=== PATIENT | male | born 1960 | race Caucasian/White ===

== ENCOUNTER 2017-09-19 13:34 | Day surgery (SDC) | payer MEDICAID ==
[~2017-09-19] VITALS: Ht 172.7 cm; Wt 68.2 kg
[~2017-09-19 13:34] MED LIST: NICO-687 TD; PANT40TA4 PO
[2017-09-19 13:55] VITALS: BP 109/71
[2017-09-19] MEDS ORDERED: fentaNYL/PF 50MCG/1 ML 2ML syringe ONE (14:38)
[2017-09-19] MEDS ORDERED: MIDAZolam 5mg/5ml vial ONE (14:39)
[2017-09-19] MEDS ORDERED: LIDOcaine Viscous 15ml cup ONE (14:39)
[2017-09-19] MEDS ORDERED: ZOFRAN PO (14:52)
[2017-09-19] MEDS ORDERED: SUCR1TAB34 PO (14:53)
[2017-09-19] MEDS ORDERED: PANT40TA4 PO (14:55)
[2017-09-19 16:04] VITALS: BP 117/79
[2017-09-19 16:14] VITALS: BP 110/72
[2017-09-19 16:24] VITALS: BP 114/80
[2017-09-19 16:34] VITALS: BP 122/68
== END 2017-09-19 16:50 | disposition home or self-care (01) ==
LOC: GI LAB 13:34
PROVIDERS: ATTEND Internal Medicine Gastroenterology
DX: K44.9 Diaphragmatic hernia without obstruction or gangrene (principal); K31.89 Other diseases of stomach and duodenum; K22.8 Other specified diseases of esophagus; F17.210 Nicotine dependence, cigarettes, uncomplicated; Z98.890 Other specified postprocedural states; Z90.49 Acquired absence of other specified parts of digestive tract; Z79.899 Other long term (current) drug therapy
CPT/HCPCS: 43239; 99152; J2250; J3010; J7030; A4620; G0500

== ENCOUNTER 2018-09-21 13:08 | Inpatient (IN) | payer MEDICAID ==
[~2018-09-21] VITALS: Ht 172.7 cm; Wt 150.0 kg
[~2018-09-21 13:08] MED LIST changes: -NICO-687 TD; +SUCR1TAB34 PO; +ZOFRAN PO
[2018-09-21] MEDS ORDERED: metoclopramide 5 mg/ml inj IV ONE (14:10)
[2018-09-21] MEDS ORDERED: diphenhydrAMINE 50 mg/ml inj IV ONE (14:10)
[2018-09-21] MEDS ORDERED: octreotide inj. 1,250 MCG in normal saline 250ml IV soln 250 ML IV SCH (14:40)
[2018-09-21 14:54] LABS: CLARITY,URINE CLEAR (Clear); COLOR,URINE YELLOW (Yellow); GLUCOSE, URINE NEGATIVE (Neg); KETONES,URINE TRACE mg/dl (Neg); LEUKOCYTE ESTERASE ,URINE NEGATIVE (Neg); NITRITES, URINE NEGATIVE (Neg); OCCULT BLOOD,URINE NEGATIVE (Neg); PROTEIN,URINE NEGATIVE (Neg); UROBILINOGEN,URINE 0.2 E.U/dL (0.2-1.0)
[2018-09-21] MEDS ORDERED: LIPA1CAP8 PO (14:57)
[2018-09-21] MEDS ORDERED: PROM25TA14 PO (14:57)
[2018-09-21 15:01] LABS: UA COLLECTION TYPE CLN CATCH MIDSTREAM
[2018-09-21 15:03] LABS: BASOPHILS # (AUTO) 0.1 X10'3 (0-0.2); BASOPHILS % (AUTO) 0.5 % (0-1); EOSINOPHILS % (AUTO) 0.2 % (0-6); HEMATOCRIT 40.7 % (42.0-52.0); HEMOGLOBIN 13.1 g/dl (14.0-17.9); LYMPHOCYTES # (AUTO) 2.5 X10'3 (1.1-4.8); LYMPHOCYTES % (AUTO) 21.4 % (21-51); MEAN CORPUSCULAR HEMOGLOBIN 28.4 PG (27.0-31.0); MEAN CORPUSCULAR HGB CONC 32.3 g/dL (33.0-36.5); MEAN CORPUSCULAR VOLUME 88.2 FL (78-98); MEAN PLATELET VOLUME 8.5 FL (7.4-10.4); MONOCYTES # (AUTO) 0.7 X10'3 (0-0.9); MONOCYTES % (AUTO) 5.8 % (2-12); NEUTROPHILS # (AUTO) 8.5 X10'3 (1.8-7.7); NEUTROPHILS % (AUTO) 72.1 % (42-75); PLATELET COUNT 319 X10'3 (140-440); RED BLOOD COUNT 4.62 X10'6 (4.70-6.10); RED CELL DISTRIBUTION WIDTH 18.7 % (11.5-14.5); WHITE BLOOD COUNT 11.8 X10'3 (4.5-11.0)
[2018-09-21 15:09] LABS: ALANINE AMINOTRANSFERASE 33 U/L (12-78); ALBUMIN 3.1 G/DL (3.4-5.0); ALKALINE PHOSPHATASE 72 IU/L (46-116); ANION GAP 9 (8-16); ASPARTATE AMINO TRANSFERASE 18 U/L (10-37); BILIRUBIN,TOTAL 0.2 MG/DL (0.1-1.0); BLOOD UREA NITROGEN 26 MG/DL (7-18); BUN/CREATININE RATIO 21.7 (5.4-32.0); CALCIUM 8.4 MG/DL (8.5-10.1); CHLORIDE 103 MMOL/L (99-107); GLUCOSE 152 MG/DL (70-104); POTASSIUM 4.5 MMOL/L (3.5-5.1); SODIUM 140 MMOL/L (135-145); TOTAL PROTEIN 6.2 G/DL (6.4-8.2); eGFR 63 ML/MIN
[2018-09-21 15:12] LABS: LIPASE 56 U/L (73-393); TROPONIN I < 0.04 NG/ML (0.0-0.05)
[2018-09-21] MEDS ORDERED: normal saline 1000ml 1,000 ML IV ONE (15:20)
[2018-09-21] MEDS ORDERED: ondansetron/PF 4mg/2ml inj IV PRN (15:30)
[2018-09-21] MEDS ORDERED: docusate sod 100mg capsule PO PRN (15:30)
[2018-09-21] MEDS ORDERED: acetaminophen 325mg tablet PO PRN ×2 (15:30)
[2018-09-21] MEDS: pantoprazole 40MG/NS 100ML BAG 100 ML IV SCH ×2 (15:32→21:11)
[2018-09-21] MEDS ORDERED: tranexamic acid 100mg/ml inj. IV ONE ×2 (15:35)
[2018-09-21] MEDS ORDERED: tranexamic acid inj. 1,500 MG in normal saline 100ml IV soln 100 ML IV ONE (15:45)
[2018-09-21 16:00] VITALS: BP 139/90
--- NOTE | 2018-09-21 16:02 | NUR ---
PT WENT TO CT THEN TO GI LAB. DR COLVIN NOTIFIED. STATED WILL SEE PT SOON THEY GET BACK.
[2018-09-21] MEDS ORDERED: fentaNYL/PF 50MCG/1 ML 2ML syringe ONE (16:06)
[2018-09-21] MEDS ORDERED: MIDAZolam 5mg/5ml vial ONE (16:07)
[2018-09-21] MEDS ORDERED: LIDOcaine Viscous 15ml cup ONE (16:07)
[2018-09-21 16:25] VITALS: BP 139/89
[2018-09-21 16:35] VITALS: BP 126/87
[2018-09-21 16:45] VITALS: BP 127/78
[2018-09-21 16:55] VITALS: BP 120/76
[2018-09-21] MEDS: morphine 4 MG/ML inj SYRINge IV PRN ×2 (17:50→22:13)
--- NOTE | 2018-09-21 17:52 | NUR ---
sent tech down to pharmacy to get prbc. blood bank stated blood not ready at this time. will continue to monitor pt.
--- NOTE | 2018-09-21 18:29 | NUR ---
attempted to call report, rn unavailable. will call back
--- NOTE | 2018-09-21 18:43 | NUR ---
REPORT CALLED TO RAMON HORNE ON SURGICAL, CASE DISCUSSED, LABS AND MEDICATIONS REVIEWED. PT TO BE TRANSPORTED TO FLOOR BY JVOANNI HORNE WITH TELE-MONITORING. PT BELONGINGS TRANSPORTED TO FLOOR WITH THE PATIENT.
--- NOTE | 2018-09-21 18:51 | NUR ---
Patient in room ED 14. I have received report from OZZIE Norman and had the opportunity to ask questions and will assume patient care when pt arrives to unit.
--- NOTE | 2018-09-21 19:10 | NUR ---
Patient brought up from ED. patient is alert and oriented, was able to walk to his bed by himself. VSS
[2018-09-21 19:20] VITALS: BP 124/90
[2018-09-21] MEDS: normal saline 1000ml 1,000 ML IV SCH (19:33)
--- NOTE | 2018-09-21 20:21 | NUR ---
I called the pharmacy to clarify the tranexamic acid 100mg/mL inj that was scheduled to be given at 1500. They said they do not have an active order for that one so it cannot be given.
[2018-09-21 21:18] LABS: HEMATOCRIT 36.1 % (42.0-52.0); HEMOGLOBIN 11.5 g/dl (14.0-17.9); MEAN CORPUSCULAR HEMOGLOBIN 28.3 PG (27.0-31.0); MEAN CORPUSCULAR HGB CONC 31.8 g/dL (33.0-36.5); MEAN CORPUSCULAR VOLUME 89.2 FL (78-98); PLATELET COUNT 303 X10'3 (140-440); RED BLOOD COUNT 4.05 X10'6 (4.70-6.10); RED CELL DISTRIBUTION WIDTH 18.8 % (11.5-14.5); WHITE BLOOD COUNT 13.6 X10'3 (4.5-11.0)
[2018-09-21] MEDS: sucralfate 1 gm tablet PO SCH (22:13)
[2018-09-21] MEDS: nicotine 14mg patch - 24hr TD SCH (22:13)
[2018-09-21 23:13] LABS: URINE AMPHETAMINE SCREEN POSITIVE (Neg); URINE BARBITUATE SCREEN NEGATIVE (Neg); URINE BENZODIAZEPINES SCREEN POSITIVE (Neg); URINE CANNABINOID SCREEN POSITIVE (Neg); URINE COCAINE SCREEN NEGATIVE (Neg); URINE METHADONE SCREEN NEGATIVE (Neg); URINE OPIATE SCREEN POSITIVE (Neg); URINE PHENCYCLIDINE SCREEN NEGATIVE (Neg)
[2018-09-22] VITALS: BP 100/51
[2018-09-22] MEDS: pantoprazole 40MG/NS 100ML BAG 100 ML IV SCH ×5 (00:41→20:34)
[2018-09-22] MEDS: normal saline 1000ml 1,000 ML IV SCH ×3 (01:29→15:44)
[2018-09-22] MEDS: morphine 4 MG/ML inj SYRINge IV PRN ×3 (03:42→19:22)
--- NOTE | 2018-09-22 06:30 | NUR ---
Patient in room [facility] 358. I have received report from Yasmine HORNE and had the opportunity to ask questions and assume patient care.
--- NOTE | 2018-09-22 06:36 | NUR ---
Problems reprioritized. Patient report given, questions answered & plan of care reviewed with OZZIE Adkins.
[2018-09-22 06:40] LABS: BASOPHILS # (AUTO) 0.1 X10'3 (0-0.2); BASOPHILS % (AUTO) 1.3 % (0-1); EOSINOPHILS # (AUTO) 0.1 X10'3 (0-0.9); EOSINOPHILS % (AUTO) 0.8 % (0-6); HEMATOCRIT 28.4 % (42.0-52.0); HEMOGLOBIN 9.3 g/dl (14.0-17.9); LYMPHOCYTES # (AUTO) 2.8 X10'3 (1.1-4.8); MEAN CORPUSCULAR HEMOGLOBIN 28.9 PG (27.0-31.0); MEAN CORPUSCULAR HGB CONC 32.8 g/dL (33.0-36.5); MEAN PLATELET VOLUME 8.6 FL (7.4-10.4); MONOCYTES # (AUTO) 0.7 X10'3 (0-0.9); MONOCYTES % (AUTO) 6.9 % (2-12); NEUTROPHILS # (AUTO) 6.7 X10'3 (1.8-7.7); PLATELET COUNT 246 X10'3 (140-440); RED BLOOD COUNT 3.22 X10'6 (4.70-6.10); RED CELL DISTRIBUTION WIDTH 18.3 % (11.5-14.5); WHITE BLOOD COUNT 10.4 X10'3 (4.5-11.0)
[2018-09-22 06:46] LABS: INR 1.1 INR; PROTHROMBIN TIME 10.8 SECONDS (9.0-12.0)
[2018-09-22 06:52] LABS: ALANINE AMINOTRANSFERASE 27 U/L (12-78); ALBUMIN 2.6 G/DL (3.4-5.0); ALBUMIN/GLOBULIN RATIO 1.1 (1.1-1.5); ALKALINE PHOSPHATASE 54 IU/L (46-116); ANION GAP 5 (8-16); ASPARTATE AMINO TRANSFERASE 14 U/L (10-37); BILIRUBIN,TOTAL 0.2 MG/DL (0.1-1.0); BLOOD UREA NITROGEN 26 MG/DL (7-18); BUN/CREATININE RATIO 28.3 (5.4-32.0); CHLORIDE 107 MMOL/L (99-107); CREATININE 0.92 MG/DL (0.60-1.10); GLUCOSE 93 MG/DL (70-104); POTASSIUM 4.2 MMOL/L (3.5-5.1); SODIUM 140 MMOL/L (135-145); TOTAL CARBON DIOXIDE 28.3 MMOL/L (24-32); eGFR 85 ML/MIN
[2018-09-22 08:00] VITALS: BP 121/78
[2018-09-22] MEDS ORDERED: pantoprazole 40 MG vial IV SCH (08:00)
[2018-09-22] MEDS: sucralfate 1 gm tablet PO SCH ×3 (08:00→20:33)
[2018-09-22] MEDS: nicotine 14mg patch - 24hr TD SCH (08:39)
[2018-09-22 12:00] VITALS: BP 119/75
[2018-09-22] MEDS ORDERED: magnesium Cl slow-release 64mg tablet PO PRN (14:25)
[2018-09-22] MEDS ORDERED: potassium Cl 40MEQ/NS 500ml 500 ML IV PRN ×2 (14:25)
[2018-09-22] MEDS ORDERED: magnesium 4gm in 100ml NS 100 ML IV PRN (14:25)
[2018-09-22] MEDS ORDERED: potassium Cl 20 mEq SR tablet PO PRN ×2 (14:25)
--- NOTE | 2018-09-22 18:30 | NUR ---
Problems reprioritized. Patient report given, questions answered & plan of care reviewed with KEO HORNE.
--- NOTE | 2018-09-22 18:35 | NUR ---
Received report from OZZIE Adkins. Patient is awake and alert on room air, in no apparent distress. Call light and items of frequent use within reach. Will continue to monitor.
[2018-09-22 20:00] VITALS: BP 108/65
[2018-09-23] VITALS: BP 136/78
[2018-09-23] MEDS: pantoprazole 40MG/NS 100ML BAG 100 ML IV SCH ×3 (01:52→11:00)
[2018-09-23] MEDS: normal saline 1000ml 1,000 ML IV SCH (01:52)
[2018-09-23] MEDS: HYDROcodone/acetaminophen 5mg/325mg tablet PO PRN ×2 (01:52→08:06)
[2018-09-23 06:07] LABS: BASOPHILS # (AUTO) 0.1 X10'3 (0-0.2); BASOPHILS % (AUTO) 1.4 % (0-1); EOSINOPHILS # (AUTO) 0.2 X10'3 (0-0.9); EOSINOPHILS % (AUTO) 1.8 % (0-6); HEMATOCRIT 27.6 % (42.0-52.0); HEMOGLOBIN 9.3 g/dl (14.0-17.9); LYMPHOCYTES # (AUTO) 2.8 X10'3 (1.1-4.8); LYMPHOCYTES % (AUTO) 29.2 % (21-51); MEAN CORPUSCULAR HEMOGLOBIN 29.7 PG (27.0-31.0); MEAN CORPUSCULAR HGB CONC 33.7 g/dL (33.0-36.5); MEAN PLATELET VOLUME 8.7 FL (7.4-10.4); MONOCYTES # (AUTO) 0.7 X10'3 (0-0.9); MONOCYTES % (AUTO) 7.8 % (2-12); NEUTROPHILS # (AUTO) 5.7 X10'3 (1.8-7.7); NEUTROPHILS % (AUTO) 59.8 % (42-75); PLATELET COUNT 233 X10'3 (140-440); RED BLOOD COUNT 3.14 X10'6 (4.70-6.10); RED CELL DISTRIBUTION WIDTH 17.9 % (11.5-14.5); WHITE BLOOD COUNT 9.5 X10'3 (4.5-11.0)
[2018-09-23 06:21] LABS: ALBUMIN 2.8 G/DL (3.4-5.0); ANION GAP 4 (8-16); BILIRUBIN,TOTAL 0.3 MG/DL (0.1-1.0); BLOOD UREA NITROGEN 22 MG/DL (7-18); BUN/CREATININE RATIO 22.9 (5.4-32.0); CALCIUM 8.1 MG/DL (8.5-10.1); CHLORIDE 105 MMOL/L (99-107); CREATININE 0.96 MG/DL (0.60-1.10); GLUCOSE 113 MG/DL (70-104); MAGNESIUM 1.6 MG/DL (1.5-2.4); POTASSIUM 3.6 MMOL/L (3.5-5.1); SODIUM 139 MMOL/L (135-145); TOTAL CARBON DIOXIDE 29.8 MMOL/L (24-32); TOTAL PROTEIN 5.3 G/DL (6.4-8.2); eGFR 81 ML/MIN
[2018-09-23 06:22] LABS: ALANINE AMINOTRANSFERASE 23 U/L (12-78); ALBUMIN/GLOBULIN RATIO 1.1 (1.1-1.5); ALKALINE PHOSPHATASE 58 IU/L (46-116); ASPARTATE AMINO TRANSFERASE 13 U/L (10-37)
[2018-09-23 06:26] LABS: PROTHROMBIN TIME 10.1 SECONDS (9.0-12.0)
--- NOTE | 2018-09-23 06:30 | NUR ---
Patient in room [facility] 358. I have received report from Lore HORNE and had the opportunity to ask questions and assume patient care.
--- NOTE | 2018-09-23 06:30 | NUR ---
Problems reprioritized. Patient report given, questions answered & plan of care reviewed with OZZIE Adkins.
--- NOTE | 2018-09-23 06:45 | NUR ---
Patient in room [facility] 358. I have received report from Jed and had the opportunity to ask questions and assume patient care.
[2018-09-23] MEDS: sucralfate 1 gm tablet PO SCH ×2 (08:06→13:00)
[2018-09-23] MEDS: nicotine 14mg patch - 24hr TD SCH (08:07)
--- NOTE | 2018-09-23 08:22 | NUR ---
patient sitting upright and eating breakfast. Patient talkative. Addendum: 09/23/18 at 0824 by Bernard FREEMAN Amended: Links added.
--- NOTE | 2018-09-23 08:27 | NUR ---
Very faint crackle sound auscultated on left side lobe Addendum: 09/23/18 at 0856 by Bernard FREEMAN Amended: Links added.
[2018-09-23 09:24] VITALS: BP 138/76
[2018-09-23] MEDS ORDERED: COL100C PO (09:43)
[2018-09-23] MEDS ORDERED: NICO-631 TD (09:43)
[2018-09-23] MEDS ORDERED: PANT40TA4 PO (09:43)
[2018-09-23 11:12] VITALS: BP 124/77
--- NOTE | 2018-09-23 11:48 | NUR ---
Patient discharge is complete, awaiting bedside delivery of medication through [facility]. Patient is also awaiting brother to arrive, who is his ride home.
--- NOTE | 2018-09-23 12:19 | NUR ---
Student documentation: I have reviewed and agree with all interventions, assessments performed and documented by Will, nursing assistants teacher.
--- NOTE | 2018-09-23 12:19 | NUR ---
Student Medication Administration: For this medication-pass time frame, all medication were reviewed, dispensed, administered and documented per hospital policy by julio c Solis.
--- NOTE | 2018-09-23 13:00 | NUR ---
Patient discharge was done by student and instructor. Patient dishcarge teaching was done verbally, medications delivered by davidson bedside . Patient iv sites taken out upon discharge, both sites showed minimal bleeding and canula were both intact upon removal. patient discharged and stated he would grab some food at a nearest restaurant and wait for ride at this time.
== END 2018-09-23 13:00 | disposition home or self-care (01) | DRG 241 ==
LOC: ER 13:08 → ED HOLD 15:29 → SUR 3N 19:15
PROVIDERS: ADMIT Internal Medicine; ATTEND Family Medicine
PROC: 0DJ08ZZ Inspection of Upper Intestinal Tract, Via Natural or Artificial Opening Endoscopic (ICD-10-PCS; principal; 2018-09-21)
DX: K25.4 Chronic or unspecified gastric ulcer with hemorrhage (principal); D64.9 Anemia, unspecified; F15.90 Other stimulant use, unspecified, uncomplicated; F17.210 Nicotine dependence, cigarettes, uncomplicated; N28.9 Disorder of kidney and ureter, unspecified; G89.29 Other chronic pain; M54.9 Dorsalgia, unspecified; F12.10 Cannabis abuse, uncomplicated; Z90.49 Acquired absence of other specified parts of digestive tract; Z71.6 Tobacco abuse counseling; Z71.51 Drug abuse counseling and surveillance of drug abuser
CPT/HCPCS: 36415; 74176; 76700; 80053; 80305; 81003; 83605; 83690; 83735; 84484; 85025; 85027; 85610; 86885; 86900; 86901; 86920; 87070; 96374; 96375; 99152; 99285; A4620; C9113; G0378; J1200; J2250; J2270; J2354; J2405; J2765; J3010; J7030

== ENCOUNTER 2019-04-01 10:07 | Inpatient (IN) | payer MEDICAID ==
[~2019-04-01] VITALS: Ht 172.7 cm; Wt 68.2 kg
[~2019-04-01 10:07] MED LIST changes: +COL100C PO; +LIPA1CAP8 PO; +NICO-631 TD
[2019-04-01] MEDS ORDERED: octreotide inj. 1,250 MCG in normal saline 250ml IV soln 250 ML IV SCH (11:35)
[2019-04-01 12:01] LABS: BASOPHILS # (AUTO) 0.1 X10'3 (0-0.2); BASOPHILS % (AUTO) 0.9 % (0-1); EOSINOPHILS # (AUTO) 0.1 X10'3 (0-0.9); EOSINOPHILS % (AUTO) 0.6 % (0-6); HEMATOCRIT 34.6 % (42.0-52.0); HEMOGLOBIN 11.6 g/dl (14.0-17.9); LYMPHOCYTES # (AUTO) 1.8 X10'3 (1.1-4.8); LYMPHOCYTES % (AUTO) 17.5 % (21-51); MEAN CORPUSCULAR HEMOGLOBIN 29.7 PG (27.0-31.0); MEAN CORPUSCULAR HGB CONC 33.5 g/dL (33.0-36.5); MEAN CORPUSCULAR VOLUME 88.7 FL (78-98); MEAN PLATELET VOLUME 8.6 FL (7.4-10.4); MONOCYTES # (AUTO) 0.4 X10'3 (0-0.9); MONOCYTES % (AUTO) 4.2 % (2-12); NEUTROPHILS # (AUTO) 8.1 X10'3 (1.8-7.7); NEUTROPHILS % (AUTO) 76.8 % (42-75); PLATELET COUNT 275 X10'3 (140-440); WHITE BLOOD COUNT 10.5 X10'3 (4.5-11.0)
[2019-04-01] MEDS ORDERED: nicotine 21mg patch - 24 hr TD ONE (12:05)
[2019-04-01] MEDS ORDERED: morphine 4 MG/ML inj SYRINge IV ONE (12:05)
[2019-04-01 12:15] LABS: PARTIAL THROMBOPLASTIN TIME 29 SECONDS (22-32)
[2019-04-01 12:18] LABS: ALANINE AMINOTRANSFERASE 30 U/L (12-78); ALBUMIN 2.9 G/DL (3.4-5.0); ALKALINE PHOSPHATASE 72 IU/L (46-116); ANION GAP 6 (8-16); ASPARTATE AMINO TRANSFERASE 14 U/L (10-37); BILIRUBIN,TOTAL 0.3 MG/DL (0.1-1.0); BLOOD UREA NITROGEN 21 MG/DL (7-18); BUN/CREATININE RATIO 23.9 (5.4-32.0); CALCIUM 8.2 MG/DL (8.5-10.1); CHLORIDE 108 MMOL/L (99-107); CREATININE 0.88 MG/DL (0.60-1.10); GLUCOSE 110 MG/DL (70-104); POTASSIUM 3.9 MMOL/L (3.5-5.1); SODIUM 144 MMOL/L (135-145); TOTAL CARBON DIOXIDE 29.9 MMOL/L (24-32); TOTAL PROTEIN 5.9 G/DL (6.4-8.2); eGFR 90 ML/MIN
[2019-04-01 12:49] LABS: PLATELET ESTIMATE NORMAL
[2019-04-01 12:50] LABS: ANISOCYTOSIS 2+
--- NOTE | 2019-04-01 13:10 | NUR ---
PT RESTING ON SIDE WITH EYES CLOSED, BREATHING UNLABORED WITH NO SIGNS OF DISTRESS
[2019-04-01 13:21] LABS: CLARITY,URINE CLEAR (Clear); COLOR,URINE YELLOW (Yellow); GLUCOSE, URINE NEGATIVE (Neg); KETONES,URINE NEGATIVE (Neg); LEUKOCYTE ESTERASE ,URINE NEGATIVE (Neg); NITRITES, URINE NEGATIVE (Neg); OCCULT BLOOD,URINE NEGATIVE (Neg); PH,URINE 8.5 (4.8-8.0); PROTEIN,URINE NEGATIVE (Neg); UROBILINOGEN,URINE 0.2 E.U/dL (0.2-1.0)
[2019-04-01 13:29] LABS: UA COLLECTION TYPE URINAL
--- NOTE | 2019-04-01 15:54 | NUR ---
PT VOMITED 350 ML OF BLOODY EMESIS
[2019-04-01] MEDS ORDERED: ondansetron/PF 4mg/2ml inj IV PRN (15:55)
[2019-04-01] MEDS ORDERED: mag hydrox/Alum hydrox/simeth 30ml oral suspension PO PRN (15:55)
[2019-04-01] MEDS ORDERED: acetaminophen 325mg tablet PO PRN (15:55)
[2019-04-01] MEDS ORDERED: magnesium hydroxide 30ml (MOM) UD suspension PO PRN (15:55)
[2019-04-01] MEDS ORDERED: pantoprazole 40MG/NS 100ML BAG 100 ML IV SCH (16:00)
[2019-04-01] MEDS ORDERED: tranexamic acid 100mg/ml inj. IV ONE (16:00)
[2019-04-01] MEDS: pantoprazole 40MG/NS 100ML BAG 100 ML IV SCH ×2 (16:03→21:20)
[2019-04-01] MEDS ORDERED: ONDA4TAB12 PO (16:08)
[2019-04-01] MEDS ORDERED: SUCR1TAB PO (16:08)
[2019-04-01] MEDS ORDERED: PROM12.512 PO (16:08)
[2019-04-01] MEDS ORDERED: NICO-687 TOP (16:08)
[2019-04-01] MEDS ORDERED: MULT-1085 PO (16:08)
[2019-04-01] MEDS ORDERED: IBUP-1984 PO (16:15)
[2019-04-01 16:47] LABS: HEMATOCRIT 34.8 % (42.0-52.0); HEMOGLOBIN 11.5 g/dl (14.0-17.9); MEAN CORPUSCULAR HEMOGLOBIN 29.4 PG (27.0-31.0); MEAN PLATELET VOLUME 8.7 FL (7.4-10.4); PLATELET COUNT 290 X10'3 (140-440); RED CELL DISTRIBUTION WIDTH 19.2 % (11.5-14.5); WHITE BLOOD COUNT 9.5 X10'3 (4.5-11.0)
[2019-04-01] MEDS: normal saline 1000ml 1,000 ML IV SCH (16:53)
[2019-04-01] MEDS ORDERED: ondansetron 4mg rapidly disintigrating tab PO PRN (17:55)
--- NOTE | 2019-04-01 18:04 | NUR ---
PT VOMITING BLOODY EMESIS [address] MARTI PAGED
[2019-04-01] MEDS ORDERED: proCHLORperazine 10 MG/2 ml inj IV ONE (18:50)
[2019-04-01] MEDS ORDERED: LORazepam 2 mg/ml vial IV ONE (18:50)
[2019-04-01] MEDS ORDERED: thiamine 100mg/ml 2ml inj. IV ONE (18:55)
[2019-04-01] MEDS ORDERED: dextrose 50%-water 50ml dispensing syringe IV PRN (18:55)
[2019-04-01] MEDS ORDERED: ondansetron inj. 24 MG in normal saline 250ml IV soln 228 ML IV SCH (18:55)
[2019-04-01] MEDS: LIPASE/PROTEASE/AMYLASE 4,200 unit CAPSULE.DR PO SCH (19:03)
[2019-04-01 20:17] VITALS: BP 140/89
[2019-04-01] MEDS: sucralfate 1 gm tablet PO SCH (20:33)
--- NOTE | 2019-04-01 22:10 | NUR ---
Patient in room [facility] 349. I have received report from PATRICIA Roger RN and had the opportunity to ask questions and assume patient care. Addendum: 04/01/19 at 2211 by Andria Liu RN Amended: Links added.
[2019-04-01 22:19] LABS: HEMATOCRIT 34.4 % (42.0-52.0); HEMOGLOBIN 11.1 g/dl (14.0-17.9); MEAN CORPUSCULAR HEMOGLOBIN 29.1 PG (27.0-31.0); MEAN CORPUSCULAR HGB CONC 32.4 g/dL (33.0-36.5); MEAN CORPUSCULAR VOLUME 89.9 FL (78-98); MEAN PLATELET VOLUME 8.6 FL (7.4-10.4); PLATELET COUNT 267 X10'3 (140-440); RED BLOOD COUNT 3.82 X10'6 (4.70-6.10); WHITE BLOOD COUNT 13.8 X10'3 (4.5-11.0)
[2019-04-01 23:53] VITALS: BP 158/86
[2019-04-02] VITALS (10 sets, daily range): BP systolic 114–145; BP diastolic 57–88
[2019-04-02] MEDS: pantoprazole 40MG/NS 100ML BAG 100 ML IV SCH ×4 (01:20→19:52)
[2019-04-02] MEDS: normal saline 1000ml 1,000 ML IV SCH ×3 (03:50→22:09)
[2019-04-02 05:16] LABS: BASOPHILS # (AUTO) 0.1 X10'3 (0-0.2); BASOPHILS % (AUTO) 1.1 % (0-1); EOSINOPHILS # (AUTO) 0.2 X10'3 (0-0.9); EOSINOPHILS % (AUTO) 1.3 % (0-6); HEMATOCRIT 32.9 % (42.0-52.0); HEMOGLOBIN 10.9 g/dl (14.0-17.9); LYMPHOCYTES % (AUTO) 17.3 % (21-51); MEAN CORPUSCULAR HEMOGLOBIN 29.7 PG (27.0-31.0); MEAN CORPUSCULAR HGB CONC 33.1 g/dL (33.0-36.5); MEAN CORPUSCULAR VOLUME 89.7 FL (78-98); MEAN PLATELET VOLUME 8.5 FL (7.4-10.4); MONOCYTES # (AUTO) 0.8 X10'3 (0-0.9); MONOCYTES % (AUTO) 6.8 % (2-12); NEUTROPHILS # (AUTO) 8.7 X10'3 (1.8-7.7); NEUTROPHILS % (AUTO) 73.5 % (42-75); PLATELET COUNT 260 X10'3 (140-440); RED BLOOD COUNT 3.67 X10'6 (4.70-6.10); WHITE BLOOD COUNT 11.9 X10'3 (4.5-11.0)
[2019-04-02 05:28] LABS: ALBUMIN 2.7 G/DL (3.4-5.0); ANION GAP 4 (8-16); BLOOD UREA NITROGEN 19 MG/DL (7-18); BUN/CREATININE RATIO 18.6 (5.4-32.0); CALCIUM 7.9 MG/DL (8.5-10.1); CHLORIDE 107 MMOL/L (99-107); CREATININE 1.02 MG/DL (0.60-1.10); GLUCOSE 98 MG/DL (70-104); POTASSIUM 4.4 MMOL/L (3.5-5.1); SODIUM 139 MMOL/L (135-145); TOTAL CARBON DIOXIDE 28.3 MMOL/L (24-32); eGFR 76 ML/MIN
--- NOTE | 2019-04-02 06:28 | NUR ---
Problems reprioritized. Patient report given, questions answered & plan of care reviewed with OZZIE Skelton. Addendum: 04/02/19 at 0628 by Andria Liu RN Amended: Links added.
[2019-04-02 06:45] LABS: PLATELET ESTIMATE NORMAL
[2019-04-02 06:46] LABS: ANISOCYTOSIS 2+
[2019-04-02] MEDS ORDERED: pantoprazole 40mg Tablet.DR PO SCH (07:30)
[2019-04-02] MEDS: LIPASE/PROTEASE/AMYLASE 4,200 unit CAPSULE.DR PO SCH ×3 (08:00→19:11)
[2019-04-02] MEDS: sucralfate 1 gm tablet PO SCH ×2 (08:00→19:53)
[2019-04-02] MEDS: nicotine 21mg patch - 24 hr TD SCH (08:27)
[2019-04-02] MEDS ORDERED: fentaNYL/PF 50MCG/1 ML 2ML syringe ONE (09:02)
[2019-04-02] MEDS ORDERED: LIDOcaine Viscous 15ml cup ONE (09:03)
[2019-04-02] MEDS ORDERED: MIDAZolam 5mg/5ml vial ONE (09:03)
[2019-04-02 12:43] LABS: HEMATOCRIT 31.1 % (42.0-52.0); HEMOGLOBIN 10.3 g/dl (14.0-17.9); MEAN CORPUSCULAR HEMOGLOBIN 29.6 PG (27.0-31.0); MEAN CORPUSCULAR VOLUME 89.6 FL (78-98); MEAN PLATELET VOLUME 8.6 FL (7.4-10.4); PLATELET COUNT 271 X10'3 (140-440); RED BLOOD COUNT 3.47 X10'6 (4.70-6.10); RED CELL DISTRIBUTION WIDTH 18.9 % (11.5-14.5); WHITE BLOOD COUNT 11.7 X10'3 (4.5-11.0)
[2019-04-02] MEDS: thiamine 100mg tablet PO SCH (13:55)
[2019-04-02 16:41] LABS: HEMOGLOBIN 10.4 g/dl (14.0-17.9); MEAN CORPUSCULAR HEMOGLOBIN 30.1 PG (27.0-31.0); MEAN CORPUSCULAR HGB CONC 33.7 g/dL (33.0-36.5); MEAN CORPUSCULAR VOLUME 89.3 FL (78-98); MEAN PLATELET VOLUME 8.6 FL (7.4-10.4); PLATELET COUNT 257 X10'3 (140-440); RED BLOOD COUNT 3.47 X10'6 (4.70-6.10); RED CELL DISTRIBUTION WIDTH 18.7 % (11.5-14.5); WHITE BLOOD COUNT 10.7 X10'3 (4.5-11.0)
[2019-04-02 18:13] LABS: URINE AMPHETAMINE SCREEN POSITIVE (Neg); URINE BARBITUATE SCREEN NEGATIVE (Neg); URINE BENZODIAZEPINES SCREEN POSITIVE (Neg); URINE CANNABINOID SCREEN POSITIVE (Neg); URINE COCAINE SCREEN NEGATIVE (Neg); URINE METHADONE SCREEN NEGATIVE (Neg); URINE OPIATE SCREEN NEGATIVE (Neg); URINE PHENCYCLIDINE SCREEN NEGATIVE (Neg)
--- NOTE | 2019-04-02 18:41 | NUR ---
Problems reprioritized. Patient report given, questions answered & plan of care reviewed with Jenna RN.
[2019-04-02] MEDS ORDERED: HYDROcodone/acetaminophen 5mg/325mg tablet PO PRN (19:40)
[2019-04-02] MEDS: LORazepam 2 mg/ml vial IV PRN (22:06)
[2019-04-02 22:44] LABS: HEMATOCRIT 29.2 % (42.0-52.0); HEMOGLOBIN 9.7 g/dl (14.0-17.9); MEAN CORPUSCULAR HEMOGLOBIN 29.6 PG (27.0-31.0); MEAN CORPUSCULAR HGB CONC 33.2 g/dL (33.0-36.5); MEAN CORPUSCULAR VOLUME 89.1 FL (78-98); MEAN PLATELET VOLUME 8.7 FL (7.4-10.4); PLATELET COUNT 239 X10'3 (140-440); RED BLOOD COUNT 3.28 X10'6 (4.70-6.10)
[2019-04-03] VITALS: BP 120/76
[2019-04-03] MEDS: pantoprazole 40MG/NS 100ML BAG 100 ML IV SCH ×4 (02:18→11:00)
[2019-04-03 04:41] LABS: BASOPHILS # (AUTO) 0.1 X10'3 (0-0.2); BASOPHILS % (AUTO) 1.1 % (0-1); EOSINOPHILS # (AUTO) 0.1 X10'3 (0-0.9); EOSINOPHILS % (AUTO) 1.1 % (0-6); HEMATOCRIT 31.2 % (42.0-52.0); HEMOGLOBIN 10.4 g/dl (14.0-17.9); LYMPHOCYTES % (AUTO) 13.1 % (21-51); MEAN CORPUSCULAR HEMOGLOBIN 29.5 PG (27.0-31.0); MEAN CORPUSCULAR HGB CONC 33.3 g/dL (33.0-36.5); MEAN CORPUSCULAR VOLUME 88.6 FL (78-98); MEAN PLATELET VOLUME 8.7 FL (7.4-10.4); MONOCYTES # (AUTO) 0.5 X10'3 (0-0.9); MONOCYTES % (AUTO) 5.9 % (2-12); NEUTROPHILS # (AUTO) 6.2 X10'3 (1.8-7.7); NEUTROPHILS % (AUTO) 78.8 % (42-75); PLATELET COUNT 249 X10'3 (140-440); RED BLOOD COUNT 3.53 X10'6 (4.70-6.10); RED CELL DISTRIBUTION WIDTH 18.3 % (11.5-14.5); WHITE BLOOD COUNT 7.9 X10'3 (4.5-11.0)
[2019-04-03 04:42] LABS: ALBUMIN 2.8 G/DL (3.4-5.0); ANION GAP 4 (8-16); BLOOD UREA NITROGEN 11 MG/DL (7-18); BUN/CREATININE RATIO 12.9 (5.4-32.0); CHLORIDE 105 MMOL/L (99-107); CREATININE 0.85 MG/DL (0.60-1.10); GLUCOSE 102 MG/DL (70-104); POTASSIUM 3.7 MMOL/L (3.5-5.1); SODIUM 138 MMOL/L (135-145); TOTAL CARBON DIOXIDE 29.3 MMOL/L (24-32); eGFR > 90 ML/MIN
[2019-04-03 07:00] VITALS: BP 129/85
[2019-04-03] MEDS: normal saline 1000ml 1,000 ML IV SCH (07:40)
[2019-04-03] MEDS: nicotine 21mg patch - 24 hr TD SCH (07:40)
[2019-04-03] MEDS: thiamine 100mg tablet PO SCH (07:41)
[2019-04-03] MEDS: sucralfate 1 gm tablet PO SCH (07:41)
[2019-04-03] MEDS: LIPASE/PROTEASE/AMYLASE 4,200 unit CAPSULE.DR PO SCH ×2 (07:44→13:44)
[2019-04-03] MEDS: LORazepam 2 mg/ml vial IV PRN (07:55)
[2019-04-03] MEDS ORDERED: PANT-47 PO (10:25)
[2019-04-03 11:39] LABS: HEMATOCRIT 31.3 % (42.0-52.0); HEMOGLOBIN 10.4 g/dl (14.0-17.9); MEAN CORPUSCULAR HEMOGLOBIN 29.7 PG (27.0-31.0); MEAN CORPUSCULAR HGB CONC 33.3 g/dL (33.0-36.5); MEAN CORPUSCULAR VOLUME 89.1 FL (78-98); MEAN PLATELET VOLUME 8.7 FL (7.4-10.4); PLATELET COUNT 253 X10'3 (140-440); RED BLOOD COUNT 3.51 X10'6 (4.70-6.10); RED CELL DISTRIBUTION WIDTH 18.6 % (11.5-14.5); WHITE BLOOD COUNT 6.3 X10'3 (4.5-11.0)
[2019-04-03 16:52] LABS: HEMATOCRIT 31.6 % (42.0-52.0); HEMOGLOBIN 10.5 g/dl (14.0-17.9); MEAN CORPUSCULAR HEMOGLOBIN 29.7 PG (27.0-31.0); MEAN CORPUSCULAR HGB CONC 33.4 g/dL (33.0-36.5); MEAN PLATELET VOLUME 8.6 FL (7.4-10.4); PLATELET COUNT 267 X10'3 (140-440); RED BLOOD COUNT 3.55 X10'6 (4.70-6.10); WHITE BLOOD COUNT 6.7 X10'3 (4.5-11.0)
--- NOTE | 2019-04-03 17:30 | NUR ---
PT DISCHARGED IN STABLE CONDITION. LEFT FACILITY IN PRIVATE VEHICLE. IV DC CANULA INTACT. ALL BELONGINGS IN HAND. FOLLOW UP INSTRUCTIONS GIVEN, ALL QUESTIONS ANSWERED. Addendum: 04/03/19 at 1828 by Gabrielle Lees RN Amended: Links added.
[2019-04-03] MEDS ORDERED: LORazepam 1 MG tablet PO PRN (18:55)
[2019-04-03] MEDS ORDERED: LORazepam 2 mg/ml vial IV PRN (18:55)
[2019-04-05] MEDS ORDERED: LORazepam 1 MG tablet PO PRN (18:55)
[2019-04-05] MEDS ORDERED: LORazepam 2 mg/ml vial IV PRN (18:55)
== END 2019-04-03 17:32 | disposition home or self-care (01) | DRG 241 ==
LOC: ER 10:08 → ED HOLD 15:52 → EDBEDREQ 16:37 → SUR 3N 19:47
PROVIDERS: ADMIT Family Medicine; ATTEND Family Medicine
PROC: 0DB98ZX Excision of Duodenum, Via Natural or Artificial Opening Endoscopic, Diagnostic (ICD-10-PCS; principal; 2019-04-02)
PROC: 0DB68ZX Excision of Stomach, Via Natural or Artificial Opening Endoscopic, Diagnostic (ICD-10-PCS; 2019-04-02)
PROC: 0DB58ZX Excision of Esophagus, Via Natural or Artificial Opening Endoscopic, Diagnostic (ICD-10-PCS; 2019-04-02)
DX: K29.01 Acute gastritis with bleeding (principal); F12.90 Cannabis use, unspecified, uncomplicated; F15.10 Other stimulant abuse, uncomplicated; F17.210 Nicotine dependence, cigarettes, uncomplicated; T39.315A Adverse effect of propionic acid derivatives, initial encounter; R51 Headache; K22.70 Barrett's esophagus without dysplasia; Z87.11 Personal history of peptic ulcer disease; Z90.49 Acquired absence of other specified parts of digestive tract; Z71.51 Drug abuse counseling and surveillance of drug abuser; Z71.6 Tobacco abuse counseling; Y92.89 Other specified places as the place of occurrence of the external cause
CPT/HCPCS: 36415; 43239; 80048; 80053; 80305; 81003; 85025; 85027; 85610; 85730; 86885; 86900; 86901; 87081; 96365; 96366; 96375; 99152; 99285; A4620; C9113; G0378; J0780; J2060; J2250; J2270; J2354; J2405; J3010; J3411; J7030; J7040; J7050